=== PATIENT | female | born 1990 | race Hispanic/Latino ===

== ENCOUNTER 2016-08-29 12:59 | Day surgery (SDC) | payer MEDICAID ==
[2016-08-29] MEDS ORDERED: NACL BACTERIOSTATIC INFILTRATI ONE (14:03)
--- NOTE | 2016-08-29 14:25 | Anesthesia Consultation ---
Anesthesia Consult and Med Hx Date of service: 08/29/16 - Airway Anesthetic Teeth Evaluation: Good ROM Head & Neck: Adequate Mental/Hyoid Distance: Adequate Mallampati Class: Class II Intubation Access Assessment: Probably Good - Pre-Operative Health Status ASA Pre-Surgery Classification: ASA2 Proposed Anesthetic Plan: General - Pulmonary Hx Smoking: No Hx Asthma: No COPD: No Hx Pneumonia: No Hx Sleep Apnea: No (SAMIRA PRE SCREEN NEGATIVE) - Cardiovascular System Hx Hypertension: No - Central Nervous System Hx Seizures: No CVA: No Hx Psychiatric Problems: No - Endocrine Hx Renal Disease: Yes (kidney stones) Hx End Stage Renal Disease: No Hx Thyroid Disease: No - Other Systems Hx Alcohol Use: Yes (RARELY) Hx Substance Use: No Hx Cancer: No
--- NOTE | 2016-08-29 14:25 | Anesthesia Day of Surgery ---
Anesthesia Day of Surgery - Day of Surgery Patient Examined: Yes Patient H&P Reviewed: Yes Patient is NPO: Yes
[2016-08-29] MEDS ORDERED: VERSED IV NR (15:00)
[2016-08-29] MEDS ORDERED: PEPCID IV NR (15:00)
[2016-08-29] MEDS ORDERED: NACL 0.9% 1000 ML 1,000 ML IV SCH (15:00)
[2016-08-29] MEDS ORDERED: ANCEF/STERILE WATER 2 GM/20 ML IV NR (15:00)
[2016-08-29] MEDS ORDERED: DILAUDID ONE (16:26)
[2016-08-29] MEDS ORDERED: DIPRIVAN 10 MG/ML IV ONE (16:26)
[2016-08-29] MEDS ORDERED: XYLOCAINE MPF 2% ONE (16:26)
[2016-08-29] MEDS ORDERED: ZOFRAN ONE ×2 (16:57→18:45)
--- NOTE | 2016-08-29 17:05 | Short Stay Summary ---
Short Stay Documentation Date of service: 08/29/16 - History H&P: obtained from office - Allergies and Medications Current Medications: Allergies No Known Allergies Allergy (Verified 06/21/15 15:27) Home Medications Medication Instructions Recorded Confirmed Last Taken Type Levonorgestrel-Ethin Estradiol 1 tab PO DAILY 08/21/16 08/29/16 08/28/16 09:00 History [Levonor-Eth Estrad Triphasic] Active Medications Cefazolin Sodium (Ancef/Sterile Water 2 Gm/20 Ml) 2 gm IV PREOP NR Stop: 08/29/16 23:59 Famotidine (Pepcid) 20 mg IV PREOP NR Stop: 08/29/16 23:00 Last Admin: 08/29/16 14:45 Dose: 20 mg Sodium Chloride (Nacl 0.9% 1000 Ml) 1,000 mls @ 100 mls/hr IV DIRECT DINORA Last Admin: 08/29/16 14:44 Dose: 100 mls/hr Midazolam HCl (Versed) 2 mg IV PREOP NR Stop: 08/29/16 23:59 Last Admin: 08/29/16 14:47 Dose: 2 mg - Brief post op/procedure progress note Date of procedure: 08/29/16 Pre-op diagnosis: left renal stones lg - Hospital course Hospital course: or pacu home - Disposition Condition at discharge: Good Disposition: DC-01 TO HOME OR SELFCARE Short Stay Discharge Plan Activity: advance as tolerated Diet: advance as tolerated Follow up with: EVIE PEARCE MD [Staff Physician] - 7 Days
[2016-08-29] MEDS ORDERED: ZOFRAN IV PRN (18:53)
[2016-08-29 19:43] VITALS: BP 114/58
--- NOTE | 2016-08-29 22:09 | Post Anesthesia Evaluation ---
- Post Anesthesia Evaluation Patient Participated: Yes Airway Patent: Yes Stable Respiratory Function: Yes Nausea/Vomiting: No Temp > 96.8F: Yes Pain Manageable: Yes Adequeate Hydration: Yes Anesthesia Complications: No
--- NOTE | 2016-09-23 06:31 | Operative Report ---
PREOPERATIVE DIAGNOSIS: Left renal stone, large, lower pole. POSTOPERATIVE DIAGNOSIS: Left renal stone, large, lower pole. PROCEDURE: Left renal ESWL. SURGEON: Julio César Huang MD ANESTHESIA: General. SPECIMENS: None. ESTIMATED BLOOD LOSS: Minimal. COMPLICATIONS: None. FINDINGS: The patient had a left stent already in place and large left renal stones visible with good visualization and decreased density end of the procedure. CLINICAL INDICATION: Counseled RCBA, antibiotics, SCDs. The patient had a stent in place was counseled and desired to proceed, antibiotics, SCDs. DESCRIPTION OF PROCEDURE: The patient was transferred to the OR suite in supine position, anesthesia begun. Biplanar fluoroscopy was used to target the left stone, stent visualized. Left stone with an F2. A total of 2500 shocks were delivered with intermittent repositioning done as necessary at a maximum of 5.0 kilovolts. At the end of the procedure, there was decreased density. The patient was awakened and transferred to the PACU in good and stable condition. JOB# [id number] ATS/NTS
== END 2016-08-29 19:15 | disposition home or self-care (01) ==
LOC: OR 12:59
PROVIDERS: ATTEND Urology
DX: N20.0 Calculus of kidney (principal); Z72.89 Other problems related to lifestyle
CPT/HCPCS: 50590; 81025; J0690; J1170; J2250; J2405; J2704; J7030